=== PATIENT | female | born 1995 | race Caucasian/White ===

== ENCOUNTER 2017-04-04 19:23 | Emergency (ER) | payer MEDICAID ==
[~2017-04-04] VITALS: Ht 157.5 cm; Wt 53.2 kg
[~2017-04-04 19:23] MED LIST: OXYC-302; TOPI25TA32 PO
[2017-04-04] MEDS ORDERED: ACETAMINOPHEN 500 MG TABLET ONE (20:26)
[2017-04-04] MEDS ORDERED: ONDANSETRON ODT 4 MG ONE (20:26)
[2017-04-04] MEDS ORDERED: ACETAMINOPHEN 325 MG TABLET PO ONE (20:30)
[2017-04-04] MEDS ORDERED: ONDANSETRON ODT 4 MG PO ONE (20:30)
[2017-04-04 21:04] LABS: BLOOD UREA NITROGEN 6 mg/dL (7-18)
[2017-04-04 21:22] LABS: ASPARTATE AMINO TRANSFERASE 17 U/L (15-37)
[2017-04-04] MEDS ORDERED: SODIUM CHLORIDE FLUSH 10ML SYR IVF ONE (23:00)
[2017-04-04] MEDS ORDERED: KETOROLAC 30 MG/1 ML IVPush ONE (23:00)
[2017-04-04] MEDS ORDERED: SODIUM CHLORIDE 0.9% 1,000ML IVBOLUS ONE (23:00)
[2017-04-04] MEDS ORDERED: KETOROLAC 30 MG/1 ML ONE (23:08)
[2017-04-05 00:03] VITALS: BP 110/71
== END 2017-04-05 00:06 | disposition home or self-care (01) ==
LOC: ED 21:55
DX: J20.8 Acute bronchitis due to other specified organisms (principal); B97.89 Other viral agents as the cause of diseases classified elsewhere; E86.0 Dehydration
CPT/HCPCS: 36415; 80053; 81001; 83690; 84702; 85025; 87077; 87086; 87186; 96361; 96374; 99284; J1885; J7030; Q0162

== ENCOUNTER 2019-01-28 10:12 | Emergency (ER) | payer SELFPAY ==
[~2019-01-28] VITALS: Ht 154.9 cm; Wt 51.6 kg
[2019-01-28 12:43] LABS: MICROSCOPIC AUTO
[2019-01-28 13:01] LABS: CULTURE INDICATED? YES
[2019-01-28 13:28] VITALS: BP 105/60
--- NOTE | 2019-01-28 13:33 | NUR ---
VERIFIED RHOGAM WITH ISAIAS BROWN.
[2019-01-28 13:58] VITALS: BP 113/72
== END 2019-01-28 14:15 | disposition home or self-care (01) ==
LOC: ED 14:10
DX: N93.9 Abnormal uterine and vaginal bleeding, unspecified (principal); Z90.49 Acquired absence of other specified parts of digestive tract
CPT/HCPCS: 36415; 76801; 81001; 84702; 86850; 86900; 87086; 96372; 99284; J2790